=== PATIENT | female | born 1975 | race Caucasian/White ===

== ENCOUNTER → 2022-11-07 | Outpatient (CLI) | payer SELFPAY ==
--- NOTE | 2022-11-07 15:07 | USB ---
Reason for Exam: Clinical finding. Patient History: Menarche at age 11. First Full-Term at age 19. Paternal grandmother had breast cancer. Risk Values: Nat 5 year model risk: 0.8%. NCI Lifetime model risk: 8.2%. Technique: Method: Whole Breast Handheld. Patient Position: Supine. Findings: The whole breast of the right breast, the axilla of the right breast and the retroareolar of the right breast were scanned. Imaged: Ultrasound imaging of: All 4 quadrants, the retroareolar region and axilla of the left breast. No evidence for organizing fluid collection or mass. At 5:00 4 cm from nipple is a normal-appearing lymph node. Retroareolar 6:00 is dilated ducts. No suspicious intraductal mass or lesion identified. Overall Assessment: Benign, BI-RAD 2 Management: Screening Mammogram of both breasts in 1 year. A clinical breast exam by your physician is recommended on an annual basis and results should be correlated with mammographic findings. This exam should not preclude additional follow-up of suspicious palpable abnormalities. Results were given to the patient verbally at the time of exam. Electronically signed and approved by: Krishna Smart DO
--- NOTE | 2022-11-07 15:32 | MM ---
Reason for Exam: Clinical finding. Patient History: Menarche at age 11. First Full-Term at age 19. Paternal grandmother had breast cancer. Last menstrual period: 11/02/2022 Risk Values: Nat 5 year model risk: 0.8%. NCI Lifetime model risk: 8.2%. Prior Study Comparison: No prior studies available for comparison. Tissue Density: The breast tissue is heterogeneously dense. This may lower the sensitivity of mammography. Findings: Analyzed By CAD. No new suspicious masses, calcifications or distortions. Overall Assessment: Incomplete: need additional imaging evaluation, BI-RAD 0 Management: Diagnostic Breast Ultrasound of both breasts. A clinical breast exam by your physician is recommended on an annual basis and results should be correlated with mammographic findings. This exam should not preclude additional follow-up of suspicious palpable abnormalities. Results were given to the patient verbally at the time of exam. Electronically signed and approved by: Krishna Smart DO
== END | disposition home or self-care (01) ==
LOC: RADMAMWWP 14:03
PROVIDERS: ATTEND Family Medicine
DX: N63.10 Unspecified lump in the right breast, unspecified quadrant (principal); N63.20 Unspecified lump in the left breast, unspecified quadrant; Z80.3 Family history of malignant neoplasm of breast
CPT/HCPCS: 77066